=== PATIENT | male | born 1975 | race Caucasian/White ===

== ENCOUNTER 2019-02-04 16:00 | Outpatient (AMBR) | payer OTHER, SELFPAY ==
--- NOTE | 2019-01-15 14:12 | PTNOTE_ITS ---
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 Increased LE pain with prolonged sitting and standing and there is shooting pain down the glutes along with numbness and burning in the LE. PMH: hypothyroidism, HIV, smoker Imaging: none reported Pt goal: walk and move normal, pain free eventually. Objective Trunk ArOM: B SB 50% with pain L>R Extension: 40% with pain around L5-S1 on L side Flexion: 10 from floor with increased LBP and posterior thigh pain B rotation: full LE strength: B hamstrings: 4-/5 Quads 3+/5 Hip abd/add 3+/5 TTP: moderate L paraspinals L2-5, PSIS L>R lumbar paraspinal atrophy C/S ArOM: L rotation: 70%, R 50% Extension: 50% Flexion: 80% with pain in L shoulder Set Making Machine Operator strength: R: 70 lbs, L 59 lbs L shoulder strength: FF: 4-/5 Abduction: 4-/5 Assessment Pt presents with trunk and cervical flexion sensitivity consistent with disk irr itation/dysfunction and radiculopathy of L UE and LE. Pt has decreased trunk and cervical ROM with pain radiating down the L glute down the sciatic pathway. Pt has global weakness of UE's and LE's and L hand is less fine motor coordination than the R. Pt has fair rehab potential limited by obesity. PT recommends further diagnostic imaging of L/S and C/S. Short Term and Alf Goals 1. Ind with HEP 2. Improved L shoulder FF and abduction strength to 4+/5 3. Pt will improve ambulatory tolerance to 30 minutes Treatment Plan 1. Manual therapy 2. Therex 3. Modalities as indicated, moist heat pack, ice, electrical stimulation, mechanical traction Frequency and Duration 2x a week for 6 weeks Certification Dates: 01/15/19 to 04/15/19 Office Procedures PT Procedures PT Date of Service: 01/15/19 OP PT Eval Mod Complex 30 minutes: Yes
--- NOTE | 2019-01-22 18:07 | PT.ODAYNRPT ---
PT Outpatient Daily Note Date of Service: January 22, 2019 OP Daily Note Visit Reasons: upper extremity weakness Outpatient Physical Therapy Treatment Date: 01/22/19 Subjective: Same as time of evaluation Objective: See F/S for therex Mechanical traction x7' at 20lbs Assessment: Good response to first response to L/S therex and traction to reduce LBP today. Plan: Continue per POC Length of Time (minutes) of Treatment: 30 Minutes Office Procedures PT Procedures PT Date of Service: 01/15/19 OP PT Eval Mod Complex 30 minutes: Yes PT Procedures PT Date of Service: 01/22/19 Therapeutic Exercise 30 minutes: Yes
--- NOTE | 2019-01-24 14:07 | PT.ODAYNRPT ---
PT Outpatient Daily Note Date of Service: January 24, 2019 OP Daily Note Visit Reasons: upper extremity weakness Outpatient Physical Therapy Treatment Date: 01/24/19 Subjective: pt came in confused thinkinng he was going to be with PT. informed pt PT does not work on fridays. pt seemed a little upset. pt states PT had told him he was going to focus on neck today. there was no specific notes from PT.asked pt if he wanted to reschedule with PT he refused. pt c/o impinged nerve on the neck. pt states PT told him he was going to try c/s traction today. Objective: see flow sheet. Assessment: pt questioned why the sci-fit when asked to start off with sci-fit explained to him its for UE strengthening too. started off with heat on his neck which he tolerated well. followed by STM to the L neck/scap. pt had muscle tension on his UT. finished with c/s traction in which he did not complain about after. Plan: continue POC per PT. Length of Time (minutes) of Treatment: 30 Minutes Office Procedures PT Procedures PT Date of Service: 01/24/19 PT Procedures PT Date of Service: 01/15/19 OP PT Eval Mod Complex 30 minutes: Yes PT Procedures PT Date of Service: 01/22/19 Therapeutic Exercise 30 minutes: Yes
--- NOTE | 2019-01-27 18:46 | PT.ODAYNRPT ---
PT Outpatient Daily Note Date of Service: January 27, 2019 OP Daily Note Visit Reasons: upper extremity weakness Outpatient Physical Therapy Treatment Date: 01/27/19 Subjective: Pt c/o L finger numbness at thumb and fingers 4-5 but denies neck, shoulder or elbow pain. Objective: See F/S for therex Mechanical traction c/S x7' Tinel's at L elbow: neg ULTT median n on L: neg C/S screen: neg for L hand ssx Assessment: Pt does have some pectoralis major and minor myofascial tension which may contribute to L hand parasthesias. Plan: Continue per POC Length of Time (minutes) of Treatment: 30 Minutes Office Procedures PT Procedures PT Date of Service: 01/24/19 PT Procedures PT Date of Service: 01/15/19 OP PT Eval Mod Complex 30 minutes: Yes PT Procedures PT Date of Service: 01/22/19 Therapeutic Exercise 30 minutes: Yes PT Procedures PT Date of Service: 01/27/19 Therapeutic Exercise 30 minutes: Yes
--- NOTE | 2019-01-29 16:29 | PTNOTE_ITS ---
PT Outpatient Daily Note Date of Service: January 29, 2019 OP Daily Note Visit Reasons: upper extremity weakness Outpatient Physical Therapy Treatment Date: 01/29/19 Subjective: Pt c/o L finger numbness at thumb and fingers 4-5 but denies neck, shoulder or elbow pain. Objective: See F/S for therex Mechanical traction c/S x7' Assessment: Pt does have some neural tension in ulnar and median nerves which may contribute to L hand parasthesias. Plan: Continue per POC Length of Time (minutes) of Treatment: 30 Minutes Office Procedures PT Procedures PT Date of Service: 01/24/19 Therapeutic Exercise 30 minutes: Yes PT Procedures PT Date of Service: 01/15/19 OP PT Eval Mod Complex 30 minutes: Yes PT Procedures PT Date of Service: 01/22/19 Therapeutic Exercise 30 minutes: Yes PT Procedures PT Date of Service: 01/27/19 Therapeutic Exercise 30 minutes: Yes PT Procedures PT Date of Service: 01/29/19 Therapeutic Exercise 15 minutes: Yes Manual Asset Protection Lead 15 minutes: Yes
--- NOTE | 2019-02-03 11:42 | PTNOTE_ITS ---
PT Outpatient Daily Note Date of Service: January 29, 2019 OP Daily Note Visit Reasons: upper extremity weakness Outpatient Physical Therapy Treatment Date: 02/03/19 Subjective: Pt c/o less L finger numbness at thumb and fingers 4-5 than last visit Objective: See F/S for therex MT: STM to wrist flexors at forearm with Graston and manual stretching x15' Assessment: Pt does have some neural tension in ulnar and median nerves which contribute to L hand parasthesias. The wrist flexors proximally are very TTP and ssx into the 4-5th fingers are reproduced with moderate pressure. Plan: Continue per POC Length of Time (minutes) of Treatment: 30 Minutes Office Procedures PT Procedures PT Date of Service: 01/24/19 Therapeutic Exercise 30 minutes: Yes PT Procedures PT Date of Service: 02/03/19 Therapeutic Exercise 15 minutes: Yes Manual Freezer Machine Operator 15 minutes: Yes PT Procedures PT Date of Service: 01/15/19 OP PT Eval Mod Complex 30 minutes: Yes PT Procedures PT Date of Service: 01/22/19 Therapeutic Exercise 30 minutes: Yes PT Procedures PT Date of Service: 01/27/19 Therapeutic Exercise 30 minutes: Yes PT Procedures PT Date of Service: 01/29/19 Therapeutic Exercise 15 minutes: Yes Manual Freezer Machine Operator 15 minutes: Yes
--- NOTE | 2019-02-04 16:48 | PT.ODAYNRPT ---
PT Outpatient Daily Note Date of Service: February 04, 2019 OP Daily Note Visit Reasons: upper extremity weakness Outpatient Physical Therapy Treatment Date: 02/04/19 Subjective: Pt c/o less L finger numbness at thumb and fingers 4-5 than last visit Objective: See F/S for therex MT: STM to wrist flexors at forearm with Graston and manual stretching x5' Assessment: Pt does have some neural tension in ulnar and median nerves which contribute to L hand parasthesias. The wrist flexors proximally are very TTP and ssx into the 4-5th fingers are reproduced with moderate pressure. Decreased manuyal therapy tolerance of L forearm due to soreness from visit yesterday. Plan: Continue per POC Length of Time (minutes) of Treatment: 30 Minutes Office Procedures PT Procedures PT Date of Service: 01/24/19 Therapeutic Exercise 30 minutes: Yes PT Procedures PT Date of Service: 02/03/19 Therapeutic Exercise 15 minutes: Yes Manual Cement Mason Apprentice 15 minutes: Yes PT Procedures PT Date of Service: 02/04/19 Therapeutic Exercise 30 minutes: Yes PT Procedures PT Date of Service: 01/15/19 OP PT Eval Mod Complex 30 minutes: Yes PT Procedures PT Date of Service: 01/22/19 Therapeutic Exercise 30 minutes: Yes PT Procedures PT Date of Service: 01/27/19 Therapeutic Exercise 30 minutes: Yes PT Procedures PT Date of Service: 01/29/19 Therapeutic Exercise 15 minutes: Yes Manual Cement Mason Apprentice 15 minutes: Yes
== END 2019-02-08 23:59 | disposition home or self-care (01) ==
PROVIDERS: PCP Physician Assistant Medical; Referring Provider Physician Assistant Medical; Visit Provider Physician Assistant Medical
DX: M54.32 Sciatica, left side (principal); R53.1 Weakness
CPT/HCPCS: 97110; 97140; 97162

== ENCOUNTER 2019-02-27 11:00 | Outpatient (AMBR) | payer OTHER, SELFPAY ==
--- NOTE | 2019-02-11 12:50 | PTNOTE_ITS ---
PT Outpatient Daily Note Date of Service: February 11, 2019 OP Daily Note Visit Reasons: upper extremity weakness Outpatient Physical Therapy Treatment Date: 02/11/19 Subjective: Couldn't sleep last night due to L LE and UE pain. [place] relief for a day or two in the neck after traction last visit Objective: See f/S for therex Mechanical traction C/S x7' at 16lbs Assessment: Good response to prone positioning with lessening pressure in the L/S around L5-S1 with reps. Plan: Continue per POC Length of Time (minutes) of Treatment: 30 Minutes Office Procedures PT Procedures PT Date of Service: 02/11/19 Therapeutic Exercise 30 minutes: Yes
--- NOTE | 2019-02-13 12:10 | PT.ODAYNRPT ---
PT Outpatient Daily Note Date of Service: February 13, 2019 OP Daily Note Visit Reasons: upper extremity weakness Outpatient Physical Therapy Treatment Date: 02/13/19 Subjective: [place] relief for a day or two in the neck after traction last visit Objective: See f/S for therex Mechanical traction C/S x7' at 16lbs MT: STM L forearm x12' Assessment: Continued L UE parasthesias limit progress with goals. L forearm is sore at distal biceps insertion secondary to possible medial nerve entrapment which may be responsible for hand parasthesias. Plan: Continue per POC Length of Time (minutes) of Treatment: 30 Minutes Office Procedures PT Procedures PT Date of Service: 02/11/19 Therapeutic Exercise 30 minutes: Yes PT Procedures PT Date of Service: 02/13/19 Therapeutic Exercise 15 minutes: Yes Manual Copier And Printer Field Technician 15 minutes: Yes
--- NOTE | 2019-02-18 12:29 | PTNOTE_ITS ---
PT Outpatient Daily Note Date of Service: February 18, 2019 OP Daily Note Visit Reasons: upper extremity weakness Outpatient Physical Therapy Treatment Date: 02/18/19 Subjective: [place] relief for a day or two in the back after traction last visit Objective: See f/S for therex Mechanical traction L/S x7' at 35 lbs Assessment: Temporary relief of LBP after prone progression and traction. Plan: Continue per POC Length of Time (minutes) of Treatment: 30 Minutes Office Procedures PT Procedures PT Date of Service: 02/11/19 Therapeutic Exercise 30 minutes: Yes PT Procedures PT Date of Service: 02/13/19 Therapeutic Exercise 15 minutes: Yes Manual Microbiology Director 15 minutes: Yes PT Procedures PT Date of Service: 02/18/19 Therapeutic Exercise 30 minutes: Yes
--- NOTE | 2019-02-27 13:53 | PTNOTE_ITS ---
PT Outpatient Daily Note Date of Service: February 27, 2019 OP Daily Note Visit Reasons: upper extremity weakness Assessment: Pt arrived ill and wanted to hold therapy today. He was checked in but not treated. No charges. Office Procedures PT Procedures PT Date of Service: 02/11/19 Therapeutic Exercise 30 minutes: Yes PT Procedures PT Date of Service: 02/13/19 Therapeutic Exercise 15 minutes: Yes Manual Sales Merchandising Specialist 15 minutes: Yes PT Procedures PT Date of Service: 02/18/19 Therapeutic Exercise 30 minutes: Yes
== END 2019-03-11 23:59 | disposition home or self-care (01) ==
PROVIDERS: PCP Physician Assistant Medical; Referring Provider Physician Assistant Medical; Visit Provider Physician Assistant Medical
DX: M54.32 Sciatica, left side (principal); R53.1 Weakness
CPT/HCPCS: 97110; 97140

== ENCOUNTER 2019-03-24 11:30 | Outpatient (AMBR) | payer OTHER, SELFPAY ==
--- NOTE | 2019-03-17 12:53 | PTNOTE_ITS ---
PT Outpatient Daily Note Date of Service: March 17, 2019 OP Daily Note Visit Reasons: upper extremity weakness Outpatient Physical Therapy Treatment Date: 03/17/19 Subjective: Continued LBP and he points to the beltline. The L forearm and hand haven't been hurting as much as before. Objective: See F/S for therex MT: STM to L medial and lateral epicondyle region of elbow to reduce nerve entrapment. STM to L5-S1 region with Graston x10' total Assessment: B proximal forearms have high tone and TTP which may contribute to n. entrapment. Plan: Continue per POC Length of Time (minutes) of Treatment: 30 Minutes Office Procedures PT Procedures PT Date of Service: 03/17/19 Therapeutic Exercise 15 minutes: Yes Manual Tap And Die Maker Technician 15 minutes: Yes
--- NOTE | 2019-03-19 19:07 | PTNOTE_ITS ---
PT Outpatient Daily Note Date of Service: March 19, 2019 OP Daily Note Visit Reasons: upper extremity weakness Outpatient Physical Therapy Treatment Date: 03/19/19 Subjective: Continued parasthesias L hand Objective: See F/S for therex MT: STM L shoulder posterior RC and scapular mm's x10' with Graston Assessment: Moderately TTP of Erot tendons and referred pain down the brachium with deep pressure over subacromial space. Plan: Reassess Length of Time (minutes) of Treatment: 30 Minutes Office Procedures PT Procedures PT Date of Service: 03/17/19 Therapeutic Exercise 15 minutes: Yes Manual Mold Yard Supervisor 15 minutes: Yes PT Procedures PT Date of Service: 03/19/19 Therapeutic Exercise 15 minutes: Yes Manual Mold Yard Supervisor 15 minutes: Yes
--- NOTE | 2019-03-24 19:21 | PTNOTE_ITS ---
PT Outpatient Daily Note Date of Service: March 24, 2019 OP Daily Note Visit Reasons: upper extremity weakness Outpatient Physical Therapy Treatment Date: 03/24/19 Subjective: Pt reports relief in L UE with less NT of fingers for two days after last Rx Objective: See F/S for therex MT: STM L shoulder posterior RC and scapular mm's x10' with Graston Assessment: Moderately TTP of Erot tendons and referred pain down the brachium with deep pressure over subacromial space. Plan: Continue with L UE manual therapy Length of Time (minutes) of Treatment: 30 Minutes HEALTH AND SAFETY CONSULTANT Service Modifier Method I: Divide the number of min of care provided by the HEALTH AND SAFETY CONSULTANT/[facility] by the total min of care provided then multiply by 100. If greater than 11 percent modifier is required. Method II: Divide the total time of care provided to patient by 10 (round to the nearest whole number) and add 1 min. to set the minimum time requirement. If treatment total was 60 min., then 10% of 6 min Did HEALTH AND SAFETY CONSULTANT provide more than 10% of the care?: No Office Procedures PT Procedures PT Date of Service: 03/17/19 Therapeutic Exercise 15 minutes: Yes Manual Account Adjuster 15 minutes: Yes PT Procedures PT Date of Service: 03/19/19 Therapeutic Exercise 15 minutes: Yes Manual Account Adjuster 15 minutes: Yes PT Procedures PT Date of Service: 03/24/19 Therapeutic Exercise 15 minutes: Yes Manual Account Adjuster 15 minutes: Yes
== END 2019-04-11 23:59 | disposition home or self-care (01) ==
PROVIDERS: PCP Physician Assistant Medical; Referring Provider Physician Assistant Medical; Visit Provider Physician Assistant Medical
DX: M54.32 Sciatica, left side (principal); S14.3XXD Injury of brachial plexus, subsequent encounter; R53.1 Weakness; F17.200 Nicotine dependence, unspecified, uncomplicated; X58.XXXD Exposure to other specified factors, subsequent encounter
CPT/HCPCS: 97110; 97140